=== PATIENT | female | born 1945 | race Caucasian/White ===

== ENCOUNTER → 2017-02-23 | Outpatient (CLI) | payer BC ==
[~2017-02-23] MED LIST: BENADRYL25 MG PO; CALCIUM + VITA1 EACH PO; COZAAR100 MG PO; FENOFIBRATE54 MG PO; FLONASE 0.05% N16 GM; FOSAMAX70 MG PO; HYDROCHLOROTHIA25 MG PO; MAXIVISION PO; METOPROLOL SUC100 MG PO; NORCO 5-325 TA1 EACH PO; OSTEO BI-FLEX1 EAC1 PO; OSTERA TABLET1 EACH PO; PRAVACHOL20 MG PO; QVAR8.7 G1 INH; SINGULAIR10 MG PO; SYNTHROID75 MCG PO; XYZAL5 MG PO; ZANTAC300 MG PO
== END ==
LOC: MAMO 07:34
DX: Z12.31 Encounter for screening mammogram for malignant neoplasm of breast (principal); N64.89 Other specified disorders of breast
CPT/HCPCS: G0202